=== PATIENT | female | born 1975 ===

== ENCOUNTER 2018-08-10 10:31 | Emergency (ER) | payer OTHER ==
[~2018-08-10] VITALS: Ht 162.6 cm; Wt 93.8 kg
[2018-08-10 11:44] LABS: ALBUMIN 3.7 g/dL (3.4-5.0); ANION GAP 6 mmol/L (5-15); CALCIUM 8.9 mg/dL (8.5-10.1); CHLORIDE 108 mmol/L (98-107); CREATININE 0.77 mg/dL (0.55-1.02)
[2018-08-10 11:45] LABS: BASOPHILS # (AUTO) 0.05 x10^3/uL (0-0.1); BASOPHILS % (AUTO) 1 % (0-1); EOSINOPHILS # (AUTO) 0.11 x10^3/uL (0-0.4); EOSINOPHILS % (AUTO) 2 % (1-7); LYMPHOCYTES # (AUTO) 1.84 x10^3/uL (1-3.4); LYMPHOCYTES % (AUTO) 24 % (22-44); MD NO; MEAN CORPUSCULAR HEMOGLOBIN 21.8 pg (27.0-34.8); MEAN CORPUSCULAR HGB CONC 31.4 g/dL (32.4-35.8); MEAN CORPUSCULAR VOLUME 69.3 fL (80-100); MEAN PLATELET VOLUME 8.5 fL (7.4-10.4); MONOCYTES % (AUTO) 5 % (2-9); NEUTROPHILS % (AUTO) 68 % (42-75); PLATELET COUNT 443 x10^3/uL (130-400); RED BLOOD COUNT 5.43 x10^6/uL (3.82-5.3); RED CELL DISTRIBUTION WIDTH 21.6 % (9.6-15.2)
--- NOTE | 2018-08-10 12:55 | NUR ---
Pt presents from home for NVD x 1 week, improving. Pt states more normal BMs last 2 days. Needs to be cleared to return to work. NAD at this time. Had yogurt for breakfast with no issues.
[2018-08-10 13:45] LABS: MICROSCOPIC INDICATED
[2018-08-10 14:06] VITALS: BP 133/73
[2018-08-10 14:08] LABS: CULTURE INDICATED? NO
== END 2018-08-10 14:09 | disposition home or self-care (01) ==
LOC: ED 14:04
DX: K52.9 Noninfective gastroenteritis and colitis, unspecified (principal)
CPT/HCPCS: 36415; 80048; 81001; 81025; 82040; 85025; 99283; 99284